=== PATIENT | female | born 1960 | race Caucasian/White ===

== ENCOUNTER 2019-05-16 06:17 | Inpatient (IN) ==
[2019-05-16] MEDS ORDERED: Ringers Solution, Lactated 1,000 ML IVC SCH (06:45)
[2019-05-16] MEDS ORDERED: CeFAZolin Syr 2,000MG/20 ML 2,000 MG/20 ML SYRINGE IVPB ONE (06:45)
[2019-05-16] MEDS ORDERED: *HR* Promethazine 25 MG/ML VIAL IVP PRN (07:05)
[2019-05-16] MEDS ORDERED: *HR* HYDROmorphone (PF) 1 MG/ML SYRINGE IVP PRN (07:05)
[2019-05-16] MEDS ORDERED: Famotidine 20 MG/2 ML VIAL IVP ONE (07:05)
[2019-05-16] MEDS ORDERED: Albuterol 2.5 MG/3 ML NEBULIZER IH PRN (07:05)
[2019-05-16] MEDS ORDERED: Acetaminophen IV 1,000 MG/100 ML INFUS..BTL IVPB ONE (07:05)
[2019-05-16] MEDS ORDERED: *HR* OxyCODONE Immed Rel 5 MG TABLET PO PRN (07:05)
[2019-05-16] MEDS ORDERED: Ondansetron 4 MG/2 ML VIAL IVP ONE (07:05)
[2019-05-16] MEDS ORDERED: Gabapentin 300 MG CAPSULE PO ONE (07:05)
[2019-05-16] MEDS ORDERED: Lidocaine -MPF 2% 2 ML VIAL ONE (07:12)
[2019-05-16] MEDS ORDERED: Ondansetron 4 MG/2 ML VIAL ONE (07:12)
[2019-05-16] MEDS ORDERED: Lidocaine HCL 4 ML Topical Solution (Laryng-O-Jet Kit Sterile Pak) TP ONE (07:12)
[2019-05-16] MEDS ORDERED: Dexamethasone 4 MG/ML VIAL ONE (07:12)
[2019-05-16] MEDS ORDERED: *HR* Propofol 200 MG/20 ML VIAL IVP ONE (07:12)
[2019-05-16] MEDS ORDERED: *HR* Rocuronium Bromide 50 MG/5 ML VIAL ONE ×2 (07:12→09:27)
[2019-05-16] MEDS ORDERED: *HR* FentaNYL (PF) 100 MCG/2 ML VIAL ONE ×2 (07:12→10:47)
[2019-05-16] MEDS ORDERED: *HR* Midazolam HCl 2 MG/2 ML VIAL ONE (07:12)
[2019-05-16] MEDS ORDERED: *HR* Succinylcholine 200 MG/10 ML VIAL IVP ONE (07:12)
[2019-05-16] MEDS ORDERED: Neostigmine Methylsulfate 3 MG/3 ML SYRINGE ONE (09:52)
[2019-05-16] MEDS ORDERED: Acetaminophen 325 MG TABLET PO PRN (12:24)
[2019-05-16] MEDS ORDERED: Naloxone 0.4 MG/ML INJ IVP PRN (12:24)
[2019-05-16] MEDS: Ondansetron 4 MG/2 ML VIAL IVP PRN ×2 (12:40→18:58)
[2019-05-16] MEDS: ceFAZolin 2,000 MG in 0.9 % Sodium Chloride 100 ML IVPB SCH (16:08)
[2019-05-16] MEDS: 0.9 % Sodium Chloride 1,000 ML IVC SCH ×2 (16:09→22:28)
[2019-05-16] MEDS ORDERED: 0.9 % Sodium Chloride 500 ML IV ONE (17:17)
[2019-05-16] MEDS: *HR* Heparin 5,000 UNIT/ML VIAL SQ SCH (17:50)
[2019-05-17] MEDS: ceFAZolin 2,000 MG in 0.9 % Sodium Chloride 100 ML IVPB SCH (00:50)
[2019-05-17] MEDS: *HR* OxyCODONE/APAP 5/325 TABLET PO PRN ×2 (03:32→14:38)
[2019-05-17 03:48] LABS: INR 1.1; Prothrombin Time 12.2 Seconds (9.4-12.1)
[2019-05-17 04:10] LABS: Basophils % 0.1 %; Hematocrit 36.4 % (35.3-44.9); Immature Granulocytes % 0.2 % (0-4); Lymphocytes # 0.8 K/mcL (0.6-4.6); Lymphocytes % 9.2 %; Mean Corpuscular HGB Conc 34.1 g/dL (31.6-35.5); Mean Corpuscular Hemoglobin 28.2 pg (28.0-33.3); Mean Corpuscular Volume 82.9 fL (83.0-100.0); Mean Platelet Volume 11.4 fL (9.4-12.4); Monocytes # 0.7 K/mcL (0.0-1.3); Monocytes % 8.1 %; Neutrophils # 7.2 K/mcL (1.6-8.9); Platelet Count 211 K/mcL (140-400); Red Blood Count 4.39 M/mcL (3.82-4.97); Red Cell Distribution Width 12.8 % (11.5-14.5); Segmented Neutrophils % 82.4 %
[2019-05-17 04:20] LABS: Hemoglobin 12.4 g/dL (11.5-15.4); White Blood Count 8.7 K/mcL (4.3-11.1)
[2019-05-17] MEDS: *HR* Heparin 5,000 UNIT/ML VIAL SQ SCH ×2 (06:12→18:04)
[2019-05-17] MEDS ORDERED: 0.9 % Sodium Chloride 500 ML IVC ONE (07:41)
[2019-05-17] MEDS: 0.9 % Sodium Chloride 1,000 ML IVC SCH (08:07)
[2019-05-17 09:27] LABS: BUN/Creatinine Ratio 14 (6-26); Blood Urea Nitrogen 13 mg/dL (6-20); Calcium 8.8 mg/dL (8.6-10.3); Carbon Dioxide 26 mEq/L (23-29); Chloride 106 mEq/L (98-107); Glucose 105 mg/dL (70-105); Osmolality,Calculated 286 (280-300); Potassium 4.1 mEq/L (3.5-5.1); Sodium 138 mEq/L (136-145); eGFR For African Americans > 60 (> 60); eGFR For Non-African Americans > 60 (> 60)
[2019-05-17 18:44] VITALS: BP 116/76
== END 2019-05-17 20:22 | disposition home or self-care (01) | DRG 658 ==
LOC: SAMDAY 06:17 → 3ANU 12:22
PROVIDERS: ADMIT Urology; ATTEND Urology